=== PATIENT | female | born 1985 | race Caucasian/White ===

== ENCOUNTER → 2024-09-19 14:25 | Outpatient (REF) | payer OTHER, SELFPAY ==
[2024-09-19 14:42] LABS: % Basophils 0.5 % (0-2); % Eosinophils 1.7 % (0-6); % Immature Granulocytes 0.2 % (0-0.5); % Lymphocytes 43.7 % (20.5-51.1); % Monocytes 7.5 % (1.7-9.3); % Neutrophils 46.4 % (42.2-75.2); Absolute Eosinophils 0.1 10^3/uL (0-0.7); Absolute Lymphocytes 2.8 10^3/uL (1.2-3.4); Absolute Monocytes 0.5 10^3/uL (0.1-0.6); Hematocrit 42.8 % (37.0-47.0); Mean Corp Hgb Conc. 32.7 g/dL (33.0-37.0); Mean Corpuscular Hgb 27.8 pg (27.0-31.0); Mean Corpuscular Volume 84.9 fL (81.0-99.0); Mean Platelet Volume 8.9 fL (7.4-10.4); Platelet Count 303 10^3/uL (130-400); Red Blood Cell Count 5.04 10^6/uL (4.20-5.40); Red Cell Dist. Width 14.3 % (11.5-14.5); White Blood Cell Count 6.4 10^3/uL (4.8-10.8)
== END ==
LOC: OIDL 14:25
PROVIDERS: ATTENDING PHYSICIAN Nurse Practitioner Acute Care
DX: D64.9 Anemia, unspecified (principal); R53.82 Chronic fatigue, unspecified; D50.9 Iron deficiency anemia, unspecified
CPT/HCPCS: 85025

== ENCOUNTER 2025-01-30 06:30 | Day surgery (SDC) | payer OTHER, SELFPAY | END 2025-01-30 13:50 | disposition home or self-care (01) | LOC: GI 06:30 | PROVIDERS: ATTENDING PHYSICIAN Internal Medicine | DX: R19.7 Diarrhea, unspecified (principal); K64.8 Other hemorrhoids; K63.89 Other specified diseases of intestine; K30 Functional dyspepsia; K44.9 Diaphragmatic hernia without obstruction or gangrene; K20.90 Esophagitis, unspecified without bleeding; D12.7 Benign neoplasm of rectosigmoid junction | CPT/HCPCS: 45385; 45380; 43239; 88305; 88342 ==

== ENCOUNTER 2025-06-13 06:23 | Day surgery (SDC) | payer OTHER, SELFPAY ==
[2025-06-12 08:35] LABS: Hematocrit 44.3 % (37.0-47.0); Hemoglobin 15.1 g/dL (12.0-16.0); Mean Corp Hgb Conc. 34.1 g/dL (33.0-37.0); Mean Corpuscular Volume 91.5 fL (81.0-99.0); Nucleated Red Blood Cells % 0 %; Platelet Count 252 10^3/uL (130-400); Red Cell Dist. Width 12.4 % (11.5-14.5)
[2025-06-12 09:19] LABS: Beta HCG Quantitative < 2.39 mIU/ml
[2025-06-12 10:39] LABS: Blood Urea Nitrogen 17 mg/dl (7-17); Calcium 9.8 mg/dl (8.4-10.2); Carbon Dioxide 23 mmol/L (22-30); Chloride 108 mmol/L (98-107); Glucose 90 mg/dl (70-99); Potassium 4.6 mmol/L (3.5-5.1); Sodium 140 mmol/L (135-145); eGFR > 60.00
[2025-06-13] VITALS (10 sets, daily range): BP systolic 110–137; BP diastolic 71–101; BMI 42.0
[2025-06-13] MEDS: NEURONTIN 300 MG PO (14:37)
[2025-06-13] MEDS: TYLENOL 1000 MG PO (14:37)
[2025-06-13] MEDS: NORMOSOL-R/PLASMALYTE-A 1000 IV (14:38)
[2025-06-13] MEDS: DILAUDID 0.25 MG IV ×2 (17:54→18:04)
--- NOTE | 2025-06-13 20:23 | W.IMMPOSTOP ---
Surgical Immed Post Op Note
-
Primary Surgeon: Mana Davis DO
Assisting Surgeon: none
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
Post-op Diagnosis: same pending pathology
Procedure Performed: colposcopy, cone biopsy, ecc, endometrial biopsy (aspiration)
Anesthesia Type: general LMA
Specimen / Cultures: 1. cervical cone biopsy (suture at 12:00) 2. ecc 3. endometrial biopsy
Estimated Blood Loss: 10ml
Pitressin 20ml of solution of 20Units pitressin in 30ml NSS
Complications: none
Operative Findings: No acetowhite uptake on colposcopy. No gross lesions on cervix.
IUD strings visualized after cone biopsy performed.
Counts correct times 2.
Stable to recovery.
== END 2025-06-13 19:10 | disposition home or self-care (01) ==
LOC: SDS 06:23
PROVIDERS: ATTENDING PHYSICIAN Obstetrics & Gynecology
DX: D06.0 Carcinoma in situ of endocervix (principal)
CPT/HCPCS: 57520; 36415; 80048; 84702; 85025; 86850; 86900; 86901; 88305; 88307; 88341; 88342

== ENCOUNTER 2025-08-05 07:13 | Day surgery (SDC) | payer OTHER, SELFPAY ==
[2025-07-16 09:21] LABS: Hematocrit 41.3 % (37.0-47.0); Hemoglobin 14.0 g/dL (12.0-16.0); Mean Corp Hgb Conc. 33.9 g/dL (33.0-37.0); Mean Corpuscular Volume 93.2 fL (81.0-99.0); Nucleated Red Blood Cells % 0 %; Platelet Count 280 10^3/uL (130-400); Red Cell Dist. Width 12.2 % (11.5-14.5)
[2025-07-16 09:54] LABS: Blood Urea Nitrogen 24 mg/dl (7-17); Calcium 9.3 mg/dl (8.4-10.2); Carbon Dioxide 27 mmol/L (22-30); Chloride 106 mmol/L (98-107); Glucose 81 mg/dl (70-99); Potassium 4.4 mmol/L (3.5-5.1); Sodium 142 mmol/L (135-145); eGFR > 60.00
[2025-07-16 10:09] LABS: Beta HCG Quantitative < 2.39 mIU/ml
[2025-07-16 12:15] VITALS: BMI 39.5
[2025-08-05] VITALS (10 sets, daily range): BP systolic 110–124; BP diastolic 68–80; BMI 39.5
[2025-08-05] MEDS: NEURONTIN 300 MG PO (13:07)
[2025-08-05] MEDS: TYLENOL 1000 MG PO (13:07)
[2025-08-05] MEDS: NORMOSOL-R/PLASMALYTE-A 1000 IV (13:21)
[2025-08-05] MEDS: TRANSDERM-SCOP 1 PATCH TRANSDERM (13:40)
[2025-08-05] MEDS: VANCOCIN 200 IV (13:49)
[2025-08-05] MEDS: HEPARIN 5000 UNITS SC (15:23)
[2025-08-05] MEDS: DILAUDID 0.5 MG IV (18:30)
--- NOTE | 2025-08-05 18:59 | W.IMMPOSTOP ---
Addendum entered and electronically signed by Mana Davis DO 08/05/25 22:55:
Add to note below:
Postop dx: endometriosis
Findings: superficial implants of endometriosis noted on left fallopian tube.No other endometriosis noted.
Original Note:
Surgical Immed Post Op Note
-
Primary Surgeon: Mana Davis DO
Manager Area: DANIEL Ivan; DANIEL Johnston
Pre-op Diagnosis: Adenocarcinoma in situ of cervix, menorrhagia, anemia
Post-op Diagnosis: same
Procedure Performed: Robotic total laparoscopic hysterectomy bilateral salpingectomy, lysis adhesions
Anesthesia Type: general ET Dr. Cunningham
Specimen / Cultures: uterus, cervix and fallopian tubes
Estimated Blood Loss: 5ml
Urine output: 200ml clear yellow urine
Complications: none
Operative Findings: Globular shaped uterus, 12 wk size. Normal appearing tubes and ovaries. some minor adhesions noted in vicinity of lower uterine segment.
Counts correct times 2.
Stable for recovery.
== END 2025-08-05 20:50 | disposition home or self-care (01) ==
LOC: SDS 07:13
PROVIDERS: ATTENDING PHYSICIAN Obstetrics & Gynecology
DX: D06.0 Carcinoma in situ of endocervix (principal); D64.9 Anemia, unspecified; N92.0 Excessive and frequent menstruation with regular cycle
CPT/HCPCS: 58571; 80048; 84702; 85025; 86850; 86900; 86901; 88305; 88309; 88342